=== PATIENT | female | born 1995 | race Caucasian/White ===

== ENCOUNTER 2016-09-20 17:38 | Emergency (ER) | payer BC ==
[~2016-09-20] VITALS: Ht 160 cm; Wt 65.3 kg
[2016-09-20 17:57] VITALS: TEMP 36.8; Ht 160 cm; Wt 65.3 kg
[2016-09-20] MEDS ORDERED: PRENTAB26 PO (19:01)
[2016-09-20 19:18] LABS: BASO % 0.3 %; BASO ABS # 0.03 K/uL (0-0.2); COMPLETE YES; EOS % 1.8 %; HEMATOCRIT 37.1 % (37-47); IG% 0.5 %; LYMPH % 23.2 %; LYMPH ABS # 2.14 K/uL (1.2-3.4); MEAN CELL VOLUME 84.7 fL (80-100); MEAN CORPUSCULAR HEMOGLOBIN 30.8 pg (25-34); MEAN CORPUSCULAR HGB CONC 36.4 g/dl (32-36); MEAN PLATELET VOLUME 8.7 fL (7.4-10.4); MONO % 6.7 %; NEUT % 67.5 %; PLATELET COUNT 248 K/uL (130-400); RED BLOOD COUNT 4.38 M/uL (4.2-5.4); WHITE BLOOD COUNT 9.23 K/uL (4.8-10.8)
[2016-09-20 19:34] LABS: BUN/CREATININE RATIO 12.5 (10-20); CALCIUM 9.1 mg/dl (8.5-10.1); CREATININE 0.65 mg/dl (0.60-1.20); POTASSIUM 3.4 mmol/L (3.5-5.1)
[2016-09-20 19:41] LABS: MANUAL MICROSCOPIC REQUIRED? NO; REVIEW REQ? NO; URINE APPEARANCE CLEAR (CLEAR); URINE BILIRUBIN NEG (NEG); URINE COLOR YELLOW; URINE NITRITE NEG (NEG); URINE PH 6.5 (4.5-7.5); UROBILINOGEN NEG (NEG); ZZUR CULT IF INDIC CLEAN CATCH NO
--- NOTE | 2016-09-20 19:58 | DIAGNOSTIC IMAGING REPORT ---
ULTRASOUND OF THE APPENDIX CLINICAL HISTORY: Right lower quadrant abdominal pain. . COMPARISON STUDY: Abdominal CT dated 12/12/2013. FINDINGS: Real-time, grayscale, and color flow sonography of the right lower quadrant was performed to assess for acute appendicitis. The appendix was not discretely visualized. No inflammatory changes or free fluid are seen in the right lower quadrant. No lymphadenopathy was seen. IMPRESSION: Nonvisualization of the appendix. Note that this does not exclude acute appendicitis. Electronically signed by: Darnell Zavala M.D. 09/20/2016 7:56 PM Dictated Date/Time: 09/20/2016 7:55 PM
[2016-09-20 20:53] VITALS: BP 103/60; PULSE 63; O2SAT 100
--- NOTE | 2016-09-20 22:21 | EMERGENCY ROOM VISIT NOTE ---
History Report prepared by Javidibkathleen: Shanice Garcia Under the Supervision of: Dr. Robert Alvarado D.O. First contact with patient: 18:40 Chief Complaint: ABDOMINAL PAIN Stated Complaint: 20 WKS ; STRONG ABDOMINAL PAIN Nursing Triage Summary: sharp pain in lower right abdomen. pain radiates down leg. 20 wks preg. denies vag bleeding or vag d/c History of Present Illness The patient is a 20 year old female who presents to the Emergency Room with complaints of sharp, intermittent right lower quadrant abdominal pain that began about an hour and 45 minutes ago. The pain began while she was at work. The pain comes and goes in waves. The pain radiates down her right leg. Currently, she has some dull abdominal pain. She has been eating and drinking well. The patient still has her gallbladder and appendix. She has had no other issues with this and she is currently 20 weeks . 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 She had a normal bowel movement this afternoon. Pt denies headache, change in vision, fevers, chest pain, shortness of breath, nausea, vomiting, diarrhea, pain with urination, vaginal discharge/bleeding, and melena. Source of History: patient Onset: 1 hour 45 minutes ago Position: abdomen (RLQ) Quality: sharp Timing: intermittent Associated Symptoms: No SOB, No chest pain, No diarrhea, No fevers, No headache, No nausea, No urinary symptoms, No vomiting Note: Other symptoms: pain radiating down right leg Review of Systems See HPI for pertinent positives & negatives. A total of 10 systems reviewed and were otherwise negative. Past Medical & Surgical Medical Problems: (1) Abdominal pain, acute, left lower quadrant Family History Diabetes mellitus FH: gallbladder disease FH: heart disease Hypertension Social History Smoking Status: Never Smoker Alcohol Use: occasionally Marital Status: Housing Status: lives with family Occupation Status: employed Current/Historical Medications Scheduled Multivit/Min/Iron/Fol Ac/Pren ( Vitamin), 1 TAB PO DAILY Allergies Uncoded Allergies: PENICILLIN (Allergy, Unknown, UNKNOWN, 09/20/16) SULFA (Allergy, Unknown, UNKNOWN, 09/20/16) Physical Exam Vital Signs Date Time Temp Pulse Resp B/P Pulse Ox O2 Delivery O2 Flow Rate FiO2 09/20/16 20:53 63 18 103/60 100 09/20/16 19:10 98 20 96/65 97 Room Air 09/20/16 17:57 36.8 75 18 103/66 100 Room Air Physical Exam GENERAL: Sitting up in bed, alert, well appearing, well nourished, no distress, non-toxic EYE EXAM: normal conjunctiva OROPHARYNX: no exudate, no erythema, lips, buccal mucosa, and tongue normal and mucous membranes are moist NECK: supple, no nuchal rigidity, no adenopathy, non-tender LUNGS: Clear to auscultation. Normal chest wall mechanics HEART: no murmurs, S1 normal and S2 normal ABDOMEN: Gravid uterus at the height of the umbilicus, slight right lower quadrant tenderness, normo-active bowel sounds, no masses, no rebound or guarding. BACK: Back is symmetrical on inspection and there is no deformity, no midline tenderness, no CVA tenderness. SKIN: no rashes and no bruising. Multiple tattoos present. UPPER EXTREMITIES: upper extremities are grossly normal. LOWER EXTREMITIES: No pitting edema. Flexion extension hip knees ankles EHL 5/5 , gross sensation intact NEURO EXAM: Normal sensorium, cranial nerves II-XII grossly intact, normal speech, no gross weakness of arms, no gross weakness of legs. Medical Decision & Procedures ER Provider Diagnostic Interpretation: Results have been interpreted by the radiologist and reviewed by me. ULTRASOUND OF THE APPENDIX CLINICAL HISTORY: Right lower quadrant abdominal pain. . COMPARISON STUDY: Abdominal CT dated 12/12/2013. FINDINGS: Real-time, grayscale, and color flow sonography of the right lower quadrant was performed to assess for acute appendicitis. The appendix was not discretely visualized. No inflammatory changes or free fluid are seen in the right lower quadrant. No lymphadenopathy was seen. IMPRESSION: Nonvisualization of the appendix. Note that this does not exclude acute appendicitis. Electronically signed by: Darnell Zavala M.D. 09/20/2016 7:56 PM Dictated Date/Time: 09/20/2016 7:55 PM Laboratory Results 09/20/16 19:00 Red Blood Count 4.38, Mean Corpuscular Volume 84.7, Mean Corpuscular Hemoglobin 30.8, Mean Corpuscular Hemoglobin Concent 36.4, Mean Platelet Volume 8.7, Neutrophils (%) (Auto) 67.5, Lymphocytes (%) (Auto) 23.2, Monocytes (%) (Auto) 6.7, Eosinophils (%) (Auto) 1.8, Basophils (%) (Auto) 0.3, Neutrophils # (Auto) 6.22, Lymphocytes # (Auto) 2.14, Monocytes # (Auto) 0.62, Eosinophils # (Auto) 0.17, Basophils # (Auto) 0.03 09/20/16 19:00 Test 09/20/16 18:55 09/20/16 19:00 Urine Color YELLOW Urine Appearance CLEAR (CLEAR) Urine pH 6.5 (4.5-7.5) Urine Specific [place] 1.010 (1.000-1.030) Urine Protein NEG (NEG) Urine Glucose (UA) NEG (NEG) Urine Ketones TRACE (NEG) Urine Occult Blood NEG (NEG) Urine Nitrite NEG (NEG) Urine Bilirubin NEG (NEG) Urine Urobilinogen NEG (NEG) Urine Leukocyte Esterase NEG (NEG) Urine WBC (Auto) 1-5 /hpf (0-5) Urine RBC (Auto) 0-4 /hpf (0-4) Urine Hyaline Casts (Auto) 0 /lpf (0-5) Urine Epithelial Cells (Auto) 10-20 /lpf (0-5) Urine Bacteria (Auto) NEG (NEG) Urine Test POS (NEG) White Blood Count 9.23 K/uL (4.8-10.8) Red Blood Count 4.38 M/uL (4.2-5.4) Hemoglobin 13.5 g/dL (12.0-16.0) Hematocrit 37.1 % (37-47) Mean Corpuscular Volume 84.7 fL (80-100) Mean Corpuscular Hemoglobin 30.8 pg (25-34) Mean Corpuscular Hemoglobin Concent 36.4 g/dl (32-36) Platelet Count 248 K/uL (130-400) Mean Platelet Volume 8.7 fL (7.4-10.4) Neutrophils (%) (Auto) 67.5 % Lymphocytes (%) (Auto) 23.2 % Monocytes (%) (Auto) 6.7 % Eosinophils (%) (Auto) 1.8 % Basophils (%) (Auto) 0.3 % Neutrophils # (Auto) 6.22 K/uL (1.4-6.5) Lymphocytes # (Auto) 2.14 K/uL (1.2-3.4) Monocytes # (Auto) 0.62 K/uL (0.11-0.59) Eosinophils # (Auto) 0.17 K/uL (0-0.5) Basophils # (Auto) 0.03 K/uL (0-0.2) RDW Standard Deviation 40.2 fL (36.4-46.3) RDW Coefficient of Variation 13.1 % (11.5-14.5) Immature Granulocyte % (Auto) 0.5 % Immature Granulocyte # (Auto) 0.05 K/uL (0.00-0.02) Anion Gap 13.0 mmol/L (3-11) Est Creatinine Clear Calc Drug Dose 123.3 ml/min Estimated GFR () 146.1 Estimated GFR (Non- 126.0 BUN/Creatinine Ratio 12.5 (10-20) Calcium Level 9.1 mg/dl (8.5-10.1) Total Bilirubin 0.4 mg/dl (0.2-1) Direct Bilirubin 0.1 mg/dl (0-0.2) Aspartate Amino Transf (AST/SGOT) 19 U/L (15-37) Alanine Aminotransferase (ALT/SGPT) 28 U/L (12-78) Alkaline Phosphatase 55 U/L (45-117) Total Protein 7.3 gm/dl (6.4-8.2) Albumin 3.9 gm/dl (3.4-5.0) Lipase 118 U/L (73-393) Laboratory results per my review. ED Course ED COURSE: Vital signs were reviewed and showed normal vitals. The patients medical record was reviewed The above diagnostic studies were performed and reviewed. ED treatments and interventions as stated above. 1845: The patient was evaluated in room B12. A complete history and physical examination was performed. heart rate was 154. 2023: Upon reevaluation, the patient is feeling much better and no longer has any pain.I discussed my findings with the patient and she understands and agrees with the treatment plan. Based on the patients age, coexisting illnesses, exam and lab findings the decision to treat as an outpatient was made. The patient remained stable while under my care. The patient appeared well at the time of discharge. Medical Decision Differential diagnoses includes but is not limited to gastritis, peptic ulcer disease, GERD, gallbladder disease, pancreatitis, small bowel obstruction, acute coronary syndrome, pericarditis, ischemic bowel, irritable bowel disease, irritable bowel syndrome, appendicitis, diverticulitis, malignancy, hernia, urinary tract infection, torsion, /ectopic , perforation, trauma, infectious. Patient is a 20-year-old female who is 20 weeks presents to the ER for right lower quadrant abdominal pain which started 45 minutes prior to arrival. She notes that it is sharp stabbing in nature and comes and goes and radiates down the anterior portion of her right thigh. No weakness or numbness in her groin or leg. She is completely neurologically intact. Abdomen does show a gravid uterus. She is normal tenderness in right lower quadrant. Vitals are stable. Afebrile. No significant leukocytosis or anemia. BMP along with LFTs , bilirubin and lipase was unremarkable. UA was negative. Ultrasound was unable to visualize the appendix. I performed a bedside ultrasound of the fetus which showed a heart rate of 172. Fetus was active moving extremities. On reevaluation she had absolutely no pain. She was updated bedside. I do favor this is likely round ligament pain rather than appendicitis. 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 Discussed with Pt concerning signs and symptoms to watch out for. Pt was instructed to follow up with their PCP and discussed with the patient their option to return to the ED at anytime for persistent or worsening symptoms. The appropriate anticipatory guidance and out-patient management, including indications for return to the emergency department, were explained at length to the patient and understood. Impression Primary Impression: RLQ abdominal pain Additional Impression: IUP (intrauterine ), incidental Scribe Attestation The scribe's documentation has been prepared under my direction and personally reviewed by me in its entirety. I confirm that the note above accurately reflects all work, treatment, procedures, and medical decision making performed by me. Departure Information Dispostion Home / Self-Care Referrals No Doctor, Assigned (PCP) Sakina Joyner D.O. Patient Instructions ED Abd Pain Cause Unkn Fem , ED Abd Pain Unkn Cause Fem, My [facility] Additional Instructions Please follow up with [employer]IVER with in the next 24 hours. Any worsening of your symptoms, please return to the ED immediately. This includes any fevers greater than 100.4, persistent nausea vomiting, worsening pain, or any other concerning signs or symptoms from your standpoint. Problem Qualifiers
== END 2016-09-20 20:57 | disposition home or self-care (01) ==
LOC: C.EDB 17:41
DX: O99.89 Other specified diseases and conditions complicating pregnancy, childbirth and the puerperium (principal); R10.9 Unspecified abdominal pain; Z3A.20 20 weeks gestation of pregnancy; Z88.0 Allergy status to penicillin; Z88.2 Allergy status to sulfonamides; Z83.3 Family history of diabetes mellitus; Z82.49 Family history of ischemic heart disease and other diseases of the circulatory system

== ENCOUNTER → 2016-11-16 | Outpatient (CLI) | payer BC ==
[~2016-11-16] MED LIST: PRENTAB26 PO
[2016-11-16 11:11] LABS: HEMATOCRIT 34.3 % (37-47)
[2016-11-16 11:42] LABS: GTGD 50 Grams
[2016-11-16 13:38] LABS: URINE APPEARANCE CLEAR (CLEAR); URINE BILIRUBIN NEG (NEG); URINE COLOR YELLOW; URINE NITRITE NEG (NEG); URINE SPECIFIC GRAVITY 1.025 (1.000-1.030); UROBILINOGEN NEG (NEG)
[2016-11-16 13:50] LABS: MANUAL MICROSCOPIC REQUIRED? NO; REVIEW REQ? NO
== END | disposition home or self-care (01) ==
LOC: C.LAB1850 09:09
PROVIDERS: ATTEND Obstetrics & Gynecology
DX: Z34.03 Encounter for supervision of normal first pregnancy, third trimester (principal)

== ENCOUNTER 2017-01-10 11:14 | Outpatient (CLI) | payer BC | END 2017-01-10 12:40 | disposition home or self-care (01) | LOC: C.OPB 11:14 → C.LD 11:14 → C.OPB 12:40 | PROVIDERS: ATTEND Obstetrics & Gynecology | DX: Z34.03 Encounter for supervision of normal first pregnancy, third trimester (principal); Z3A.36 36 weeks gestation of pregnancy ==

== ENCOUNTER → 2017-02-02 | Outpatient (CLI) | payer BC ==
[2017-02-02 13:37] LABS: URINE APPEARANCE CLEAR (CLEAR); URINE BILIRUBIN NEG (NEG); URINE COLOR YELLOW; URINE EPITHELIAL CELL AUTO 0-5 /lpf (0-5); URINE NITRITE NEG (NEG); URINE SPECIFIC GRAVITY 1.005 (1.000-1.030); UROBILINOGEN NEG (NEG)
[2017-02-02 13:39] LABS: MANUAL MICROSCOPIC REQUIRED? NO; REVIEW REQ? NO
== END ==
LOC: C.LAB1850 12:36
PROVIDERS: ATTEND Obstetrics & Gynecology
DX: Z34.03 Encounter for supervision of normal first pregnancy, third trimester (principal)

== ENCOUNTER 2017-02-13 00:03 | Outpatient (CLI) | payer BC ==
[~2017-02-13] VITALS: Ht 162.6 cm; Wt 76.8 kg
[2017-02-13 00:17] VITALS: Ht 162.6 cm; Wt 76.8 kg
== END 2017-02-13 00:52 | disposition home or self-care (01) ==
LOC: C.OPB 00:03 → C.LD 00:03 → C.OPB 00:52
PROVIDERS: ATTEND Obstetrics & Gynecology
DX: O62.9 Abnormality of forces of labor, unspecified (principal); O48.0 Post-term pregnancy; Z3A.41 41 weeks gestation of pregnancy

== ENCOUNTER 2017-02-13 18:58 | Outpatient (CLI) | payer BC ==
[~2017-02-13] VITALS: Ht 162.6 cm; Wt 76.8 kg
[2017-02-13 19:30] VITALS: Ht 162.6 cm; Wt 76.8 kg
== END 2017-02-13 20:30 | disposition home or self-care (01) ==
LOC: C.LD 18:58 → C.OPB 18:58
PROVIDERS: ATTEND Obstetrics & Gynecology
DX: O48.0 Post-term pregnancy (principal); Z3A.41 41 weeks gestation of pregnancy

== ENCOUNTER 2017-02-14 07:40 | Inpatient (IN) | payer BC ==
[~2017-02-14] VITALS: Ht 162.6 cm; Wt 76.7 kg
[2017-02-14] MEDS ORDERED: LACTATED RINGER'S 1000ML 1,000 ML IV PRN (07:57)
[2017-02-14] MEDS ORDERED: LACTATED RINGER'S 1000ML 500 ML IV PRN ×2 (07:58→12:00)
[2017-02-14] MEDS ORDERED: OXYTOCIN 30 UNITS/500ML NSS IV PRN ×2 (08:00→18:00)
[2017-02-14] MEDS: LACTATED RINGER'S 1000ML 1,000 ML IV SCH ×2 (08:14→11:36)
[2017-02-14 08:19] LABS: HEMATOCRIT 35.5 % (37-47); MEAN CORPUSCULAR HGB CONC 36.1 g/dl (32-36); MEAN PLATELET VOLUME 8.9 fL (7.4-10.4); PLATELET COUNT 162 K/uL (130-400); RED BLOOD COUNT 4.13 M/uL (4.2-5.4); WHITE BLOOD COUNT 10.67 K/uL (4.8-10.8)
--- NOTE | 2017-02-14 08:51 | Medical Student: [facility] ---
Med Student History & Physical Date of Service Feb 14, 2017. Chief Complaint Induction History of Present Illness Source: patient Monika Chapin is a 21-year-old with an EDC of 02/05/2017 who presents to labor and delivery for induction of labor. Alexander bulb catheter was placed on Tuesday, and the patient is preparing for induction today. Bulb fell out this morning at 0500, and she is currently receiving Pitocin. Monika reports having contractions every 5-7 minutes with movements every couple minutes. She denies leakage of fluid or bleeding. She also reports her mood as "good" with " a lot of emotions" but denies feelings of anxiety or depression currently. She is comfortable and has no other complaints at this time. Monika had an episode on January 10 where she presented to L&D for what she thought was rupture of membranes. She was found to have no cervical dilation or leakage of fluid at that time, and was sent home. She also had an episode on Sep 20 where she presented to the ER for right lower quadrant pain. She says that her baby "was lying on a nerve" which resolved and has not bothered her since then. Other than these two events, her has had no other complications. She denied genetic screening. Her blood type is O+, and her Hct was 34.3 on Nov 16. Her most recent 1 hr glucose challenge revealed a low glucose level of 67. Gonorrhea, chlamydia, HIV, GBS, RPR, and Hep B were all negative. She is Rubella immune. Anatomy ultrasound normal. OB History See history in HPI. No other obstetric history. 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 No episodes or complaints since then. Denies history of STIs. Denies history of abnormal pap smears. Past Medical History Remote history of anxiety and depression. Was taking Celexa from [id number] and [id number], but stopped it when she decided to try to get . She has also seen a counselor in the past, she says this "gave her good coping strategies." Her PCP is following these symptoms. Past Surgical History None Family History Mother - hypertension, hypothyroidism Father - hypertension, diverticulitis Sister - "glucose and fructose intolerance" Grandmother - Parkinson's Disease Social History Smoking Status: Never Smoker Smokeless Tobacco Use: No Alcohol Use: none (during , 1-2 times per week prepartum) Marital Status: Housing status: lives with significant other Occupational Status: employed (at [employer]) Allergies Coded Allergies: Sulfamethoxazole w/Trimethoprim (Verified Allergy, Mild, HIVES, 02/14/17) Penicillins (Verified Allergy, Unknown, HIVES, 02/14/17) Uncoded Allergies: sulfa drugs (Allergy, Mild, HIVES, 02/13/17) Home Medications Multivit/Min/Iron/Fol Ac/Pren ( Vitamin), 1 TAB PO DAILY Review of Systems Constitutional: No fever, No chills Respiratory: No shortness of breath Cardiovascular: No chest pain, No palpitations Abdomen: No pain, No nausea, No vomiting Psychiatric: No depression symptoms, No anxiety Physical Exam General Appearance: WD/WN, no apparent distress Eyes: PERRL Neck: no adenopathy, thyroid normal Respiratory/Chest: lungs clear, normal breath sounds Cardiovascular: regular rate, rhythm, no edema, no gallop, no murmur, normal peripheral pulses Abdomen / GI: normal bowel sounds, non tender, no organomegaly Fundal Height: 1 fingerbreadth below the xiphoid process Extremities: normal inspection, no calf tenderness, no pedal edema Neurologic/Psych: alert, normal mood/affect Monitoring External Monitor: Baseline 150 Moderate variability Accelerations present No decelerations Tocodynamometer: Harish every 2-3 minutes Laboratory Results 02/14/17 08:06 Test 02/14/17 08:06 Red Blood Count 4.13 M/uL (4.2-5.4) Mean Corpuscular Volume 86.0 fL (80-100) Mean Corpuscular Hemoglobin 31.0 pg (25-34) Mean Corpuscular Hemoglobin Concent 36.1 g/dl (32-36) RDW Standard Deviation 39.6 fL (36.4-46.3) RDW Coefficient of Variation 12.6 % (11.5-14.5) Mean Platelet Volume 8.9 fL (7.4-10.4) Assessment and Plan Monika Chapin is a 21-year-old with an EDC of 02/05/2017 who presents to labor and delivery for induction of labor. Pitocin started. Patient to receive epidural and AROM. Anticipate normal spontaneous vaginal delivery.
[2017-02-14 08:55] VITALS: Ht 162.6 cm; Wt 76.7 kg
[2017-02-14] MEDS ORDERED: EpHEDrine SULFATE INJ 50 MG/ML AMP ONE (11:11)
[2017-02-14] MEDS ORDERED: BUPIVACAINE 0.25% 30 ML VIAL ONE (11:11)
[2017-02-14] MEDS ORDERED: FENTANYL 2MCG/ML ROPIV 1.25MG/ML 100ML BAG EPI ONE (11:12)
[2017-02-14] MEDS ORDERED: FENTANYL CITRATE INJ 50 MCG/1 ML 2 ML VIAL ONE (11:12)
[2017-02-14] MEDS ORDERED: EpHEDrine SULFATE INJ 50 MG/ML AMP IV PRN (12:00)
[2017-02-14] MEDS ORDERED: ONDANSETRON INJ 2 MG/ML 2 ML VIAL IV PRN (12:00)
[2017-02-14] MEDS ORDERED: DiphenhydrAMINE HCL 50 MG/ML VIAL IV PRN (12:00)
[2017-02-14] MEDS ORDERED: NALOXONE HCL INJ 1 MG in SODIUM CHLORIDE 0.9% 1000ML 1,000 ML IV PRN (12:00)
[2017-02-14] MEDS ORDERED: FENTANYL 2MCG/ML ROPIV 1.25MG/ML 100ML BAG EPI PRN (12:00)
[2017-02-14] MEDS ORDERED: NALBUPHINE HCL INJ 10 MG/ML AMP IV PRN (12:00)
[2017-02-14] MEDS ORDERED: NALOXONE HCL INJ 0.4 MG/1 ML VIAL/CARP IV PRN (12:00)
[2017-02-14] MEDS ORDERED: METHYLERGONOVINE MALEATE 0.2 MG/ML AMP ONE (17:41)
--- NOTE | 2017-02-14 17:57 | Medical Student: [facility] ---
Medical Student Delivery Note Monika Chapin is a 21-year-old G1 now P1001 with an EDC of 02/05/2017 who presented to labor and delivery for induction of labor. Labor was augmented with Alexander bulb catheter on Tuesday which fell out today as well as Pitocin. When she was complete and 0 station, she pushed for approximately 40 minutes. A viable female was delivered in the right occiput posterior position at 1729 weighing 7 lbs 12 oz. There was no nuchal cord. The baby was placed on the mother's abdomen where her nose and mouth were bulb suctioned. The cord was doubly clamped and transected by the father. Cord blood and cord segment were collected. A second degree perineal laceration was apparent, and it was repaired with 4-0 and 3-0 Vicryl. The placenta with a three vessel cord was delivered shortly after with jori downward traction and uterine massage. Hemostasis was achieved with continued uterine massage, continued Pitocin drip, and IM Methergine in her right thigh. EBL was 350 cc. scores were 8 and 9. The mother and are currently doing well and recovering.
[2017-02-14] MEDS ORDERED: ACETAMINOPHEN 325 MG TAB PO PRN (18:00)
[2017-02-14] MEDS ORDERED: DIPHTHERIA/TETANUS/PERTUSSIS 0.5 ML SYR/VIAL IM. ONE (18:00)
[2017-02-14] MEDS ORDERED: METHYLERGONOVINE MALEATE 0.2 MG/ML AMP IM ONE (18:00)
[2017-02-14] MEDS ORDERED: OXYCODONE/ACETAMINOPHEN 5-325 TAB PO PRN (18:00)
[2017-02-14] MEDS ORDERED: LANOLIN OINT EXT PRN ×2 (18:00)
[2017-02-14] MEDS ORDERED: SUPERCREAM 0.870 % 15GM JAR EXT PRN (18:00)
[2017-02-14] MEDS ORDERED: BENZOCAINE 20% AER SPR 82.5 GM CAN EXT PRN (18:00)
[2017-02-14] MEDS ORDERED: HYDROCORTISONE ACETATE 25 MG SUPP PR PRN (18:00)
[2017-02-14] MEDS: IBUPROFEN 600 MG TAB PO PRN (21:19)
--- NOTE | 2017-02-14 21:31 | DELIVERY SUMMARY ---
DATE OF OPERATION: 02/14/2017 PREOPERATIVE DIAGNOSES: 1. Intrauterine at 41 and 2/7th weeks. 2. Post-date . POSTOPERATIVE DIAGNOSES: Same. PROCEDURE: 1. Alexander bulb for cervical ripening. 2. Pitocin augmentation. 3. Epidural anesthesia. 4. Amniotomy. 5. Normal spontaneous vaginal delivery. 6. Second degree perineal laceration with repair. SURGEON: Dr. Zimmerman. ANESTHESIA: Epidural. ESTIMATED BLOOD LOSS: 350 mL. PROCEDURE: The patient presented for post-date induction this morning. She had a Alexander catheter bulb placed in to her cervix last night. It fell out at 5 a.m this morning. On admission, she was 4, 75%, and -2. Pitocin augmentation was started. She underwent an epidural anesthesia. Then she underwent amniotomy for clear fluid at 6 cms dilated. She then progressed with Pitocin augmentation no greater than 15 milliunits to complete, complete +2 station, and pushed to deliver a viable female infant which rotated to ROP presentation. There was no nuchal cord. The nose and mouth were bulb suctioned. The rest of the infant was then delivered without difficulty. The nose and mouth were again bulb suctioned. There was immediate cry. The was placed on the maternal abdomen for drying and attention. At one minute, the cord was clamped and cut. The cord blood and segment were obtained. Placenta was delivered spontaneously intact with a 3-vessel cord. The cervix, sulci and rectum were examined and found to be intact. Second degree perineal laceration was repaired with 3-0 and 4-0 Vicryl in normal standard fashion. Hemostasis obtained with dilute Pitocin, fundal massage and IM Methergine. Estimated blood loss was 350 mL. Apgars were 8 and 9. Weight pending. Mother and baby doing well at the end of the delivery. I attest to the content of the Intraoperative Record and any orders documented therein. Any exceptions are noted below. MTDD
--- NOTE | 2017-02-14 21:57 | Anesthesia Procedure Note ---
Anesthesia Epidural Removal Nt Date & Time Feb 14, 2017 at 21:57 Vital Signs Pain Intensity: 4.0 Notes Mental Status: alert / awake / arousable, participated in evaluation Nausea / Vomiting: adequately controlled Pain: adequately controlled Airway Patency, RR, SpO2: stable & adequate BP & HR: stable & adequate Hydration State: stable & adequate Neuraxial Anesthesia: was administered Anesthetic Complications: no major complications apparent, pt satisfied with anesthetic care Epidural: removed without complications, with tip intact
[2017-02-14] MEDS: DOCUSATE SODIUM 100 MG CAP PO SCH (22:34)
[2017-02-14 23:15] VITALS: BP 102/53; PULSE 70; TEMP 36.6; O2SAT 98
[2017-02-15] VITALS (7 sets, daily range): BP systolic 91–109; BP diastolic 54–73; PULSE 70–87; TEMP 36.3–36.7; O2SAT 95–100
--- NOTE | 2017-02-15 06:33 | Medical Student: [facility] ---
Med Student [employer] Progress Nt Date of Service Feb 15, 2017. Subjective conversation w/ patient, physical exam Ambulation: ambulating normally Voiding: no voiding problems Passing Gas: Yes Lochia: Small Feeding Type: Breast Feeding Notes: Monika Chapin is a 21-year-old G1 now P1001 day 1 for normal spontaneous vaginal delivery. She has some pain where her stitches are for which she is taking Motrin, and this is helping. Her mood is "good." She has no other complaints. Review of Systems Constitutional: No fever, No chills Respiratory: No shortness of breath Cardiac: No chest pain Abdomen: No nausea, No vomiting Objective Vital Signs Date Time Temp Pulse Resp B/P (MAP) Pulse Ox O2 Delivery O2 Flow Rate FiO2 02/15/17 03:10 36.7 70 16 103/60 (74) 99 Room Air 02/14/17 23:15 98 Room Air 02/14/17 23:15 36.6 70 18 102/53 (69) 98 Room Air 02/14/17 21:45 Room Air Physical Exam General Appearance: WELL-APPEARING Respiratory/Chest: lungs clear, normal breath sounds Cardiovascular: regular rate, rhythm, no edema, no gallop Abdomen: + tenderness Fundus: Relation to Umbilicus (could not palpate) Extremities: no pedal edema, no calf tenderness Laboratory Results Last 24 Hours Test 02/14/17 08:06 02/15/17 04:44 White Blood Count 10.67 K/uL Red Blood Count 4.13 M/uL Hemoglobin 12.8 g/dL Hematocrit 35.5 % Mean Corpuscular Volume 86.0 fL Mean Corpuscular Hemoglobin 31.0 pg Mean Corpuscular Hemoglobin Concent 36.1 g/dl RDW Standard Deviation 39.6 fL RDW Coefficient of Variation 12.6 % Platelet Count 162 K/uL Mean Platelet Volume 8.9 fL Assessment and Plan Post- Day Number: 1 Continue Routine Care: Monika Chapin is a 21-year-old G1 now P1001 day 1 for normal spontaneous vaginal delivery. - Continue routine care. - Due to history of depression and anxiety, monitor mood and educate patient about signs of depression.
--- NOTE | 2017-02-15 07:25 | Progress Note ---
Subjective Feb 15, 2017. Subjective conversation w/ patient, physical exam, lab review Ambulation: ambulating normally Voiding: no voiding problems Passing Gas: Yes Diet Tolerance: Regular Diet Lochia: Small Pain: controlled with oral pain meds Objective Vital Signs Date Time Temp Pulse Resp B/P (MAP) Pulse Ox O2 Delivery O2 Flow Rate FiO2 02/15/17 03:10 36.7 70 16 103/60 (74) 99 Room Air 02/14/17 23:15 98 Room Air 02/14/17 23:15 36.6 70 18 102/53 (69) 98 Room Air 02/14/17 21:45 Room Air Physical Exam General Appearance: WELL-APPEARING, WD/WN, NO APPARENT DISTRESS Abdomen: non tender, soft Fundus: Firm, Non-Tender, Relation to Umbilicus (below u , difficult to palpate ) Extremities: non-tender, normal inspection, no pedal edema Laboratory Results Last 24 Hours Test 02/14/17 08:06 02/15/17 07:17 White Blood Count 10.67 K/uL Red Blood Count 4.13 M/uL Hemoglobin 12.8 g/dL Hematocrit 35.5 % Mean Corpuscular Volume 86.0 fL Mean Corpuscular Hemoglobin 31.0 pg Mean Corpuscular Hemoglobin Concent 36.1 g/dl RDW Standard Deviation 39.6 fL RDW Coefficient of Variation 12.6 % Platelet Count 162 K/uL Mean Platelet Volume 8.9 fL Assessment and Plan Problem List Medical Problems: (1) Abdominal pain during Status: Acute Post- Day#: 1 Continue Routine Care: Doing well. Routine care.
[2017-02-15 08:26] LABS: HEMATOCRIT 32.6 % (37-47)
[2017-02-15] MEDS: PRENATAL VITAMIN TAB PO SCH (08:33)
[2017-02-15] MEDS: DOCUSATE SODIUM 100 MG CAP PO SCH ×2 (08:33→20:09)
[2017-02-15] MEDS: IBUPROFEN 600 MG TAB PO PRN ×3 (09:46→20:09)
[2017-02-16] MEDS: IBUPROFEN 600 MG TAB PO PRN ×2 (00:39→08:55)
--- NOTE | 2017-02-16 01:30 | Discharge Instructions ---
Discharge Instructions Date of Service Feb 16, 2017. Admission Reason for Admission: Induction Discharge Discharge Diagnosis / Problem: recovery after normal delivery Discharge Goals Goal(s): Routine recovery after delivery Medications Continue Dispensed Medications: supercream, dermaplast, tucks, lansinoh Activity Recommendations Activity Limitations: per Instructions/Follow-up section . Instructions / Follow-Up Instructions / Follow-Up ACTIVITY RECOMMENDATIONS: * Gradual return to full activity over the next 2-3 weeks. * No lifting - nothing heavier than baby over the next 2-3 weeks. * Do not engage in vigorous exercise, sexual activity or sports until cleared by your physician. * Do not drive or operate any motorized equipment until cleared by your physician. * You may shower/bathe daily. MEDICATIONS: For discomfort or pain, you may use Acetaminophen (Tylenol), Ibuprofen (Advil), or Naproxen (Aleve) following the package directions. For constipation you may use Colace following the package directions. BREAST CARE: If you are not breast feeding: * Wear a supportive bra 24 hours a day for one to two weeks. * Avoid stimulating your breasts and nipples as much as possible during the first few weeks after delivery. * When taking a shower, have the warm water hit your back, not breasts. * When your breasts feel full, apply ice packs. Usually three to four times a day helps ease the discomfort. * Take a mild pain medication (Tylenol / Motrin) when you are uncomfortable. If breast feeding: * Use breast milk to lubricate nipples. Lansinoh cream may be used for sore nipples. You do not need to remove cream prior to breast feeding. If using a different brand of cream, check the label for directions regarding removal of cream prior to nursing. * Wear a supportive bra. * If having problems with breasts or breast feeding, call a nissan sales consultant or your health care provider. EPISIOTOMY CARE: After delivery, if you have an episiotomy (stitches), the following steps will ease discomfort and aid healing. * For the first 24 hours after delivery, place ice packs next to your episiotomy to help reduce swelling. * After the first 24 hour-period, sitz baths, either portable or in the tub, are suggested. A shower with a shower arm sprayed over the episiotomy may be comforting. * Lindsey care should be done after each voiding and bowel movement. Squirt warm water from a plastic bottle over the perineum (region of the body between the anus and urinary opening) and pat dry. * Use Dermoplast to ease discomfort. Shake container. [place] directly over the episiotomy. Place a Tucks on a clean sanitary pad next to your episiotomy. SPECIAL CARE INSTRUCTIONS: When you are discharged from the hospital, it is important for you to follow the instructions listed below: * During the first week at home, you should be able to care for yourself and your baby. In addition, the usual light household activities are encouraged. * Limit your activities to the way you feel. Do not try to clean the house or move furniture. Be sensible. * If you actively engage in sports and have done so up until the time of your delivery, you may resume these activities as soon as you feel able. This may take up to one month or even longer. Use good judgment. * Continue to take your vitamins for at least six weeks after the of your baby. * Your diet need not be limited unless you were on a special diet before your delivery. Breast-feeding mothers need around 2500 calories per day and at least 64-80 ounces of fluid per day (8 to 10 glasses). * You should eat foods from the four major food groups. Crash diets or fad diets are to be avoided. Eating lean meats, fresh fruits and vegetables, low-fat dairy products, high fiber foods and a regular exercise program, will help you get back to your pre- weight without putting your health at risk. * Constipation is sometimes a problem after delivery. Take a mild laxative as needed. If breast feeding, Milk of Magnesia is acceptable to use. You may use a suppository or Fleets enema if no episiotomy. * A daily shower or tub bath is suggested. Be sure to thoroughly and gently dry the perineum. * A bloody vaginal discharge will usually continue until around four weeks post . A small amount of bleeding may continue for as long as six weeks. Vaginal discharge changes from the bright red bleeding after delivery to pink then brownish and finally yellowish-pink before becoming white and disappearing. * Bleeding may increase with activity. Your first period may come in 4-8 weeks. If you are breast feeding, your period may be delayed even longer. * [place] (sex) can begin whenever both you and your partner feel comfortable and do not have any form of genital infection. It is recommended that you wait at least six weeks for internal and external healing to occur. If you have questions, please talk to your health care practitioner. A condom should be used to prevent infection and . * Foreplay, gentle intercourse and lubrication is very important the first several times to prevent pain. A water-based lubricant such as K-Y jelly or Astroglide may be used. * If you have RH negative blood and your baby is RH positive, you will receive RHOGAM by injection prior to discharge. The nurse will give you a card to keep with you that has the date and place that you received RHOGAM after delivery. * During your care, you had a Rubella screen done to check for the presence of rubella antibodies in your blood. If your test was negative, you will receive a Rubella vaccine prior to discharge. This vaccine may cause a fever, soreness at the injection site and flu-like symptoms. If these symptoms persist, notify your health care practitioner. is not advised for one month after a Rubella vaccine. * Verbalizes understanding of car seat law as reviewed with patient nursing. * Car Seat hand-out given and reviewed with patient by nursing. * Shaken baby information reviewed with patient by nursing. Call you doctor if: * Heavy bleeding (saturating several pads an hour) or passing clots the size of your fist. * A fever >101 degrees F (38.3 degrees C) on two occasions four hours apart and /or chills. * Unusual pain in the pelvic or vaginal areas. * "Baby Blues" lasting longer than two weeks. If you have any questions or concerns, call your health care practitioner at . FOLLOW UP VISIT: * Please call the office at to schedule a 6 week examination. It is important you keep this appointment. It is important for you to make arrangements for either yearly or twice yearly check-ups thereafter. Current Hospital Diet Patient's current hospital diet: Regular OB Diet Discharge Diet Recommended Diet: Regular OB Diet Pending Studies Studies pending at discharge: no Medical Emergencies . Who to Call and When: Medical Emergencies: If at any time you feel your situation is an emergency, please call 911 immediately. . Non-Emergent Contact Non-Emergency issues call your: Hydraulic Mechanic . . "Provider Documentation" section prepared by Krista Leal. . VTE Core Measure Inpt VTE Proph given/why not?: Treatment not indicated
--- NOTE | 2017-02-16 06:46 | Medical Student: [facility] ---
Med Student [employer]OR [employer] Progress Nt Date of Service Feb 16, 2017. Subjective Notes: Monika Chapin is a 21-year-old G1 now P1001 day 2 for normal spontaneous vaginal delivery. She says she is doing "good" at this time. She says that she has leg cramps if she doesn't walk for a while, but denies chest pain and shortness of breath. consultation has been going well and baby is latching without the nipple shield now. Monika has a history of depression and anxiety but says she is doing well today. She also wants to discuss how much bleeding is normal in the period. Review of Systems Constitutional: No fever, No chills Respiratory: No shortness of breath Cardiac: No chest pain, No edema Abdomen: No nausea, No vomiting Objective Vital Signs Date Time Temp Pulse Resp B/P (MAP) Pulse Ox O2 Delivery O2 Flow Rate FiO2 02/15/17 22:50 36.3 70 20 95/56 (69) 97 Room Air 02/15/17 22:50 Room Air 02/15/17 20:05 36.6 85 20 91/54 (66) 95 Room Air 02/15/17 16:00 36.6 87 18 109/73 (85) Room Air 02/15/17 16:00 Room Air 02/15/17 12:32 36.5 85 20 102/64 (77) 100 Room Air 02/15/17 08:35 36.4 81 19 104/67 (79) 97 Room Air 02/15/17 08:10 97 Room Air Physical Exam General Appearance: WELL-APPEARING Respiratory/Chest: lungs clear Cardiovascular: regular rate, rhythm, no edema, + gallop/S3 Abdomen: normal bowel sounds Fundus: Firm, Relation to Umbilicus (at level of umbilicus) Extremities: no pedal edema, no calf tenderness Laboratory Results Last 24 Hours Test 02/15/17 07:17 Hemoglobin 11.5 g/dL Hematocrit 32.6 % Assessment and Plan Post- Day Number: 2 Continue Routine Care: Monika Chapin is a 21-year-old G1 now P1001 day 2 for normal spontaneous vaginal delivery. - Continue routine care. - Discuss signs of and resources for depression. - Discuss signs of excessive bleeding in the period.
--- NOTE | 2017-02-16 07:37 | Progress Note ---
Subjective Feb 16, 2017. Subjective conversation w/ patient, physical exam Ambulation: ambulating normally Voiding: no voiding problems Passing Gas: Yes Diet Tolerance: Regular Diet Lochia: Moderate Feeding Type: Breast Feeding Review of Systems Constitutional: No fever, No chills, No sweats, No weight loss, No weakness, No fatigue, No problem reported Breast: No see HPI, No breast lump, No change in shape, No nipple discharge, No breast pain, No problem reported Female : No see HPI, No dysuria, No urinary frequency, No hematuria, No incontinence, No abnormal vaginal bleeding, No vaginal discharge, No problem reported Objective Vital Signs Date Time Temp Pulse Resp B/P (MAP) Pulse Ox O2 Delivery O2 Flow Rate FiO2 02/15/17 22:50 36.3 70 20 95/56 (69) 97 Room Air 02/15/17 22:50 Room Air 02/15/17 20:05 36.6 85 20 91/54 (66) 95 Room Air 02/15/17 16:00 36.6 87 18 109/73 (85) Room Air 02/15/17 16:00 Room Air 02/15/17 12:32 36.5 85 20 102/64 (77) 100 Room Air 02/15/17 08:35 36.4 81 19 104/67 (79) 97 Room Air 02/15/17 08:10 97 Room Air Physical Exam General Appearance: WELL-APPEARING, NO APPARENT DISTRESS Abdomen: non tender, soft Fundus: Firm, Non-Tender, Relation to Umbilicus (2 below U) Extremities: no calf tenderness Assessment and Plan Problem List Medical Problems: (1) Abdominal pain during Status: Acute Post- Day#: 2 Continue Routine Care: stable course. discharge to home follow up in 6 weeks.
[2017-02-16] MEDS: PRENATAL VITAMIN TAB PO SCH (08:54)
[2017-02-16] MEDS: DOCUSATE SODIUM 100 MG CAP PO SCH (08:54)
[2017-02-16 08:55] VITALS: BP 106/62; PULSE 87; TEMP 36.8; O2SAT 98
[2017-02-16 14:05] VITALS: BP_DIAS 62; PULSE 87; TEMP 36.8
== END 2017-02-16 14:10 | disposition home or self-care (01) | DRG 775 ==
LOC: C.LD 07:40 → C.OBG 21:29
PROVIDERS: ADMIT Obstetrics & Gynecology; ATTEND Obstetrics & Gynecology
PROC: 10E0XZZ Delivery of Products of Conception, External Approach (ICD-10-PCS; principal; 2017-02-14)
PROC: 3E033VJ Introduction of Other Hormone into Peripheral Vein, Percutaneous Approach (ICD-10-PCS; principal; 2017-02-14)
PROC: 0KQM0ZZ Repair Perineum Muscle, Open Approach (ICD-10-PCS; principal; 2017-02-14)
DX: O48.0 Post-term pregnancy (principal); O70.1 Second degree perineal laceration during delivery; Z3A.41 41 weeks gestation of pregnancy; Z37.0 Single live birth

== ENCOUNTER 2019-03-09 14:08 | Inpatient (IN) ==
[2019-03-09] MEDS ORDERED: OXYTOCIN 30 UNITS/500 ML BAG IV PRN ×2 (14:59→19:33)
[2019-03-09] MEDS: LACTATED RINGER'S 1,000 ML IV PRN ×2 (15:15→16:46)
[2019-03-09 15:24] LABS: Hematocrit (blood only) 34.5 % (37-47); Hemoglobin 12.1 g/dL (12.0-16.0); Mean Corpuscular Volume 80.8 fL (80-100); Mean Platelet Volume 9.1 fL (7.4-10.4); Platelet Count 162 K/uL (130-400); RDW Coefficient of Variation 13.1 % (11.5-14.5); RDW Standard Deviation 38.6 fL (36.4-46.3); Red Blood Count 4.27 M/uL (4.2-5.4); White Blood Count 6.12 K/uL (4.8-10.8)
[2019-03-09 15:33] LABS: Mean Corpuscular Hgb Conc 35.1 g/dL (32-36)
[2019-03-09] MEDS ORDERED: BUPIVACAINE 0.25% 30 ML VIAL ONE (15:46)
[2019-03-09] MEDS ORDERED: ePHEDrine sulfate 50 MG/ML AMP ONE (15:47)
[2019-03-09] MEDS ORDERED: fentaNYL 2MCG/ML ROPIV 1.25MG/ML 100 ML BAG EPI ONE (15:47)
[2019-03-09] MEDS ORDERED: fentaNYL citrate 100 MCG/2 ML VIAL ONE (15:47)
[2019-03-09] MEDS ORDERED: NALOXONE HCL 0.4 MG/1 ML VIAL/CARP IV PRN (15:49)
[2019-03-09] MEDS ORDERED: DiphenhydrAMINE HCL 50 MG/ML VIAL IV PRN (15:49)
[2019-03-09] MEDS ORDERED: NALOXONE HCL 1 MG in SODIUM CHLORIDE 0.9% 1000ML 1,000 ML IV PRN (15:49)
[2019-03-09] MEDS ORDERED: ONDANSETRON INJ 2 MG/ML 2 ML VIAL IV PRN (15:49)
[2019-03-09] MEDS ORDERED: fentaNYL 2MCG/ML ROPIV 1.25MG/ML 100 ML BAG EPI PRN (15:49)
[2019-03-09] MEDS ORDERED: NALBUPHINE HCL INJ 10 MG/ML AMP IV PRN (15:49)
[2019-03-09] MEDS ORDERED: ePHEDrine sulfate 50 MG/ML AMP IV PRN (15:49)
--- NOTE | 2019-03-09 15:53 | Anesthesiology Consultation ---
Date of Service March 09, 2019 SpO2 100 Assessment & Plan Chart Review Chart Review: Patient NOT seen in Pre Admission Testing and Acceptable Risk for Labor Epidural Consults Requested none ASA ASA2 Proposed Anesthesia Anesthesia Type: Labor Epidural and CSE Risk / Benefits Reviewed With: PT / POA / Parent / Guardian, Accepts Plan and Informed Consent Obtained History Height/Weight Height: 5 ft 4 in Weight: 72.121 kg Allergies Allergy/AdvReac Type Severity Reaction Status Date / Time Bactrim Allergy Mild HIVES Verified 02/14/17 08:52 Penicillins Allergy Mild HIVES Verified 03/09/19 14:36 sulfamethoxazole Allergy Mild HIVES Verified 03/09/19 14:37 trimethoprim Allergy Mild HIVES Verified 03/09/19 14:37 Sulfa (Sulfonamide Allergy Hives Verified 03/09/19 14:36 Antibiotics) Medications Home Medications Medication Instructions Recorded Confirmed Last Taken Multivit/Min/Iron/Fol Ac/Pren 1 tab PO DAILY #0 tab 09/20/16 03/09/19 03/08/19 08:00 ( Vitamin) Active Medications Generic Name Dose Route Start Last Admin Trade Name Freq PRN Reason Stop Dose Admin Lactated Ringer's 1,000 mls @ 125 mls/hr 03/09/19 14:59 03/09/19 15:15 Lr IV 03/11/19 14:58 125 mls/hr .Q8H PRN Administration L&D Protocol Protocol NPO Date Last Intake of Fluids: 03/09/19 Time Last Intake of Fluids: 07:00 Date Last Intake of Solids: 03/08/19 Time Last Intake of Solids: 20:00 Past Medical History Medical History Anxiety and depression no meds currently Exercise / Class Metabolic Activity II 4-5 Yardwork/Stairs/Walk up hill Past Anesthesia History No Hx of Anesthesia Complications and No Family Hx of Anesthesia Complications History of PONV No Hx of PONV Social History Smoking Status: Never smoker Hx Alcohol Use: No Hx Substance Use: No Review of Systems no chest pain or sob Physical Exam Vital Signs Last Vital Signs Temp 36.8 C 03/09/19 14:21 Pulse 80 03/09/19 14:17 Resp 20 03/09/19 14:21 BP 115/79 03/09/19 14:17 ENMT Mouth: no TMJ abnormality Thyromental Distance: > or= 3.5 Finger Breadths Mallampati Class: II Neck normal visual inspection Respiratory normal respiratory effort Auscultation: lungs clear to auscultation bilaterally Cardiovascular Rate/Rhythm: regular rate and regular rhythm Musculoskeletal Spine: normal cervical ROM Neurologic moves all extremities Psychiatric Orientation: alert and oriented x 3 Testing Laboratory Results 03/09/19 15:11
--- NOTE | 2019-03-09 16:02 | History & Physical Report ---
Date of Service March 09, 2019 Patient is a 23 yo white female who presents at 39+ weeks with regular ctns since 1000 this morning. no bloody show or SPROM. ctns are now every 3 minutes. GBS(-). is uncomplicated. Assessment & Plan (1) Normal labor: IUP at term in active labor see orders for further instructions. requesting epidural analgesia anticipate vaginal History of Present Illness Primary Care Provider: NO PCP Allergies Allergy/AdvReac Type Severity Reaction Status Date / Time Bactrim Allergy Mild HIVES Verified 02/14/17 08:52 Penicillins Allergy Mild HIVES Verified 03/09/19 14:36 sulfamethoxazole Allergy Mild HIVES Verified 03/09/19 14:37 trimethoprim Allergy Mild HIVES Verified 03/09/19 14:37 Sulfa (Sulfonamide Allergy Hives Verified 03/09/19 14:36 Antibiotics) Home Medications Home Medications Medication Instructions Recorded Confirmed Type Multivit/Min/Iron/Fol Ac/Pren 1 tab PO DAILY #0 tab 09/20/16 03/09/19 History ( Vitamin) Patient History Medical History Anxiety and depression no meds currently Social History Preferred Language: Finnish Communication Ability: Effective Furnace Clerk Required: No Beliefs That Will Affect Care: None marital status: Current Living Situation: Family Current Living Situation Comment: spouse and daughter 2yo Feels Safe at Home: Yes Safety Concerns: Feels Safe At This Time Smoking Status: Never smoker Hx Alcohol Use: No Hx Substance Use: No Review of Systems All systems reviewed & are unremarkable except as noted in HPI & below Physical Exam Constitutional: WD/WN, vitals as above Respiratory: normal respiratory effort, lungs clear to auscultation Cardiovascular: RRR, no murmur, no edema Gastrointestinal (Abdomen): normal bowel sounds, soft, nontender, no hepatosplenomegaly Musculoskeletal: no calgf tenderness Genitourinary: OB Exam Abdomen: + regular contractions (every 3-4 minutes) Manual OB Exam: + cervical dilation 6 cm, + cervical effacement 90% and + station 0 OB Exam Monitor Tracing: + external FHT monitor used, + external uterine monitor used, + category I and + normal FHT variability Results & Data Vital Signs (Past 12 Hours) Vital Signs Temp Pulse Resp BP Pulse Ox 03/09/19 15:53 71 100 03/09/19 14:21 36.8 C 20 03/09/19 14:17 80 115/79
[2019-03-09] MEDS ORDERED: HYDROCORTISONE ACETATE 25 MG SUPP PR PRN (19:33)
[2019-03-09] MEDS ORDERED: BISACODYL 10 MG SUPP PR PRN (19:33)
[2019-03-09] MEDS ORDERED: ACETAMINOPHEN 325 MG TAB PO PRN (19:33)
[2019-03-09] MEDS ORDERED: BENZOCAINE 20% AER SPR 82.5 GM CAN EXT PRN (19:33)
[2019-03-09] MEDS ORDERED: SUPERCREAM 0.870% 15 GM JAR EXT PRN (19:33)
[2019-03-09] MEDS ORDERED: OXYCODONE/ACETAMINOPHEN 5mg/325mg TAB PO PRN (19:33)
[2019-03-09] MEDS ORDERED: DIPHTHERIA/TETANUS/PERTUSSIS 0.5 ML SYR/VIAL IM ONE (19:33)
[2019-03-09] MEDS ORDERED: METHYLERGONOVINE MALEATE 0.2 MG/ML AMP IM STA (21:29)
--- NOTE | 2019-03-09 22:46 | Anesthesia Procedure Note ---
Date of Service March 09, 2019 Anesthesia Post Epidural Note Vital Signs Vital Signs: Temp Pulse Resp BP Pulse Ox 37.1 C 65 20 101/59 L 100 03/09/19 22:03 03/09/19 22:02 03/09/19 22:03 03/09/19 22:02 03/09/19 19:23 Pain Intensity Abdomen: Pain Intensity: 1 Notes Mental Status: alert / awake / arousable and participated in evaluation Nausea / Vomiting: adequately controlled Pain: adequately controlled Airway Patency, RR, SpO2: stable & adequate BP & HR: stable & adequate Hydration State: stable & adequate Neuraxial Anesthesia: was administered and sensory block is resolving Anesthetic Complications: no major complications apparent and Pt Satisfied with anesthetic care Epidural: Removed without complications and With tip intact
--- NOTE | 2019-03-10 01:28 | Delivery Summary ---
DATE OF OPERATION: 03/09/2019 The patient is a 23-year-old 2, para 1-0-0-1 white female, EDC of 03/11/2019, who presented in active labor. She was 5 cm on exam in the office on arrival in labor and delivery, she was 6-7 cm dilated. She received effective epidural analgesia. Membranes were ruptured for a small amount of clear fluid. She then progressed to full dilation and pushed effectively over intact perineum for delivery of a viable male infant. Mouth and nasopharynx were suctioned on the mother's abdomen. There was vigorous crying and the infant was moving all 4 limbs. The cord was then clamped and cut. Placenta was expressed intact with 3-vessel cord. First-degree perineal laceration was repaired in the usual fashion with 3-0 chromic. Estimated blood loss was 200 mL. Mother and infant were doing well after delivery. I attest to the content of the Intraoperative Record and any orders documented therein. Any exception s are noted below.
[2019-03-10] MEDS: IBUPROFEN 600 MG TAB PO PRN ×5 (03:40→21:15)
[2019-03-10 06:58] LABS: Hematocrit (blood only) 33.2 % (37-47); Hemoglobin 11.7 g/dL (12.0-16.0); Mean Corpuscular Hgb Conc 35.2 g/dL (32-36); Mean Corpuscular Volume 79.4 fL (80-100); Mean Platelet Volume 9.4 fL (7.4-10.4); Platelet Count 152 K/uL (130-400); RDW Coefficient of Variation 13.1 % (11.5-14.5); RDW Standard Deviation 37.8 fL (36.4-46.3); Red Blood Count 4.18 M/uL (4.2-5.4); White Blood Count 7.27 K/uL (4.8-10.8)
--- NOTE | 2019-03-10 08:26 | Obstetrical Progress Note ---
Date of Service March 10, 2019 Assessment & Plan (1) Encounter for care and examination after delivery: stable course continue current care plan Present on Admission?: No Day #:: 1 Subjective Ambulation: ambulating normally Voiding: no voiding problems Passing Gas:: Yes Diet Tolerance:: regular diet Lochia:: Moderate Feeding Type:: breast feeding some cramping with nursing. Review of Systems All systems reviewed & are unremarkable except as noted in HPI & below Physical Exam Constitutional WD/WN, vitals as above Gastrointestinal (Abdomen) normal bowel sounds, soft, nontender, no hepatosplenomegaly Genitourinary OB Exam Abdomen: + fundal height Fundus: + firm and + relation to umbilicus (at U) Results & Data Vital Signs (Past 12 Hours) Vital Signs Temp Pulse Pulse Resp BP BP Pulse Ox 03/10/19 03:40 36.5 C 66 14 100/59 L 98 03/09/19 23:00 36.6 C 57 L 16 108/74 98 03/09/19 22:03 37.1 C 20 03/09/19 22:02 65 101/59 L 03/09/19 21:20 81 112/74 03/09/19 20:53 76 103/56 L 03/09/19 20:45 67 107/54 L
[2019-03-10] MEDS: PRENATAL VITAMIN 1 TAB PO SCH (08:44)
[2019-03-10] MEDS: DOCUSATE SODIUM 100 MG CAP PO SCH ×2 (08:44→21:13)
[2019-03-10] MEDS ORDERED: BISACODYL 5 MG TABEC PO SCH (20:00)
[2019-03-11] MEDS: IBUPROFEN 600 MG TAB PO PRN ×2 (01:39→09:09)
[2019-03-11 06:46] LABS: Hematocrit (blood only) 31.6 % (37-47); Hemoglobin 10.8 g/dL (12.0-16.0)
--- NOTE | 2019-03-11 09:07 | Obstetrical Progress Note ---
Date of Service March 11, 2019 Assessment & Plan (1) Encounter for care and examination after delivery: Patient PP day 2. Doing well Stable for discharge. Precautions discussed Subjective Ambulation: ambulating normally Voiding: no voiding problems Passing Gas:: Yes Diet Tolerance:: regular diet Lochia:: Moderate Current Pain Level(1-10): 3 Physical Exam Gastrointestinal (Abdomen) Inspection/Auscultation: abdomen not distended Percussion/Palpation: abdomen soft; abdomen nontender Genitourinary OB Exam Abdomen: + fundal height Fundus: + firm and + relation to umbilicus (Below) Results & Data Vital Signs (Past 12 Hours) Vital Signs Temp Pulse Resp BP Pulse Ox 03/10/19 23:30 36.5 C 59 L 18 109/67 99
[2019-03-11] MEDS: DOCUSATE SODIUM 100 MG CAP PO SCH (09:09)
[2019-03-11] MEDS: PRENATAL VITAMIN 1 TAB PO SCH (09:09)
== END 2019-03-11 12:45 | disposition home or self-care (01) | DRG 807 ==
LOC: OPB 14:08 → 4S1 14:11 → 4S2 22:35

== ENCOUNTER 2022-11-26 01:39 | Inpatient (IN) ==
[2022-11-26] MEDS ORDERED: OXYTOCIN 30 UNITS/500 ML BAG IV PRN ×3 (07:47→16:00)
[2022-11-26] MEDS ORDERED: LIDOCAINE 1% LOCAL 20 ML VIAL INFIL PRN (07:47)
--- NOTE | 2022-11-26 08:30 | History & Physical Report ---
Date of Service November 26, 2022 Assessment & Plan (1) Encounter for induction of labor: Plan admit, iv, start pitocin, arom completed. epidural when pt desires. fhts categ 1. Admission and Anticipated Discharge Date Admission Date: November 26, 2022 History of Present Illness Chief Complaint: planned induction Primary Care Provider: ONDINA PCP 26yo at 39+wks [place] presents to L&D for planned elective induction of labor. No rom, no vb. +FM. No regular ctx. PNC uncomplicated, history of pericardial effusion, saw mfm-->resolved. PNL rh pos, ri, gbs neg OBH: x 3 GYNH: nl paps no stds Allergies Allergy/AdvReac Type Severity Reaction Status Date / Time Bactrim Allergy Mild HIVES Verified 02/14/17 08:52 nickel Allergy Unknown SKIN BUMPS Verified 11/26/22 08:20 AND ITCHINESS Penicillins Allergy Unknown HIVES Verified 11/26/22 08:20 Sulfa (Sulfonamide Allergy Unknown Hives Verified 11/26/22 08:20 Antibiotics) sulfamethoxazole Allergy Unknown HIVES Verified 11/25/22 13:38 trimethoprim Allergy Unknown HIVES Verified 11/25/22 13:38 Septra TABS Allergy Unknown Hives Uncoded 11/25/22 13:38 Home Medications Medication Instructions Recorded Confirmed Type prenat.vits,mariel,[id number] 1 tab PO DAILY 04/05/19 11/26/22 History Patient History Medical History (Updated 11/26/22 @ 08:29 by Lenore Mejia MD, FACOG) Anxiety and depression HX , NO MEDS CURRENTLY History of chicken pox History of depression Ovarian cyst X2 UTI (urinary tract infection) Surgical History No history of previous surgery S/P dilatation and curettage endometrial polyp Family History (Updated 04/26/22 @ 14:13 by Vivian Aguero) Sister Depression Father Dyslipidemia Hypertension Family history of diabetes mellitus Mother Hypertension Grandfather (Maternal) Leukemia Denies family history of Ovarian cancer Breast cancer Colorectal cancer Social History (Updated 04/26/22 @ 14:14 by Vivian Aguero) Smoking Status: Never smoker Hx Alcohol Use: No Hx Substance Use: No Preferred Language: Omani Communication Ability: Effective Rail Car 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/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 Required: No Beliefs That Will Affect Care: None marital status: marital status details: Robert Chapin (31) [phone] Current Living Situation: Spouse and Family Current Living Situation Comment: and 2 kids current occupational status: employed 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 Other Information That Helps Us Care for You: No Feels Safe at Home: Yes Safety Concerns: Feels Safe At This Time Assistive Devices: Contacts and Glasses Review of Systems as per Subjective / HPI Physical Exam Constitutional: WD/WN, vitals as above Respiratory: normal respiratory effort, lungs clear to auscultation Cardiovascular: Rate/Rhythm: regular rate and regular rhythm Gastrointestinal (Abdomen): soft gravid nt efw 7-8# Musculoskeletal: no edema nontender calves Neurologic: grossly normal Psychiatric: A+Ox3, euthymic affect Genitourinary: Manual OB Exam: + cervical dilation 2 cm, + cervical effacement 50%, + station -2 and + amniotic fluid (AROM) clear OB Exam Monitor Tracing: + external FHT monitor used, + external uterine monitor used (no regular ctx), + category I and + normal FHT variability Results & Data Vital Signs (Past 12 Hours) Vital Signs Temp Pulse Resp BP 11/26/22 07:59 98.2 F 20 11/26/22 07:54 108 H 120/71 Coding Level of Care Code None Diagnoses Encounter for induction of labor Z34.90
[2022-11-26 08:31] LABS: Hematocrit (blood only) 30.5 % (37.0-47.0); Hemoglobin 10.2 g/dl (12.0-16.0); Mean Corpuscular Hgb Conc 33.4 g/dL (32.0-36.0); Mean Corpuscular Volume 77.6 fL (80.0-100.0); Platelet Count 210 K/uL (130-400); RDW Coefficient of Variation 12.7 % (11.5-14.5); RDW Standard Deviation 35.8 fL (36.4-46.3); Red Blood Count 3.93 M/uL (4.20-5.40); White Blood Count 6.42 K/ul (4.8-10.8)
--- NOTE | 2022-11-26 09:07 | Anesthesiology Consultation ---
Date of Service November 26, 2022 Assessment & Plan (1) Encounter for pre-operative examination: Chart Review Chart Review: Patient NOT seen in Pre Admission Testing and Acceptable Risk for Labor Epidural Consults Requested none History Height/Weight Height: 5 ft 4 in Weight: 76.839 kg Allergies Allergy/AdvReac Type Severity Reaction Status Date / Time Bactrim Allergy Mild HIVES Verified 02/14/17 08:52 nickel Allergy Unknown SKIN BUMPS Verified 11/26/22 08:20 AND ITCHINESS Penicillins Allergy Unknown HIVES Verified 11/26/22 08:20 Sulfa (Sulfonamide Allergy Unknown Hives Verified 11/26/22 08:20 Antibiotics) sulfamethoxazole Allergy Unknown HIVES Verified 11/25/22 13:38 trimethoprim Allergy Unknown HIVES Verified 11/25/22 13:38 Septra TABS Allergy Unknown Hives Uncoded 11/25/22 13:38 Medications Home Medications Medication Instructions Recorded Confirmed Last Taken prenat.vits,mariel,[id number] 1 tab PO DAILY 04/05/19 11/26/22 11/25/22 12:00 Active Medications Generic Name Dose Route Start Last Admin Trade Name Freq PRN Reason Stop Dose Admin Lactated Ringer's 1,000 mls @ 125 mls/hr 11/26/22 07:47 11/26/22 09:24 Lr IV 11/28/22 07:46 125 mls/hr .Q8H PRN Administration L&D Protocol Protocol Oxytocin 30 units in 500 mls @ 7 mls/hr 11/26/22 07:53 11/26/22 11:25 Pitocin IV 11/28/22 07:52 0.42 units/hr .Q24H PRN 7 mls/hr Labor Induction/Augmentation Titration Protocol 0.42 UNITS/HR Past Medical History Medical History Anxiety and depression HX , NO MEDS CURRENTLY History of chicken pox History of depression Ovarian cyst X2 UTI (urinary tract infection) Past Family History Family History Sister Depression Father Dyslipidemia Hypertension Family history of diabetes mellitus Mother Hypertension Grandfather (Maternal) Leukemia Denies family history of Ovarian cancer Breast cancer Colorectal cancer Past Surgical History Surgical History No history of previous surgery S/P dilatation and curettage endometrial polyp Social History Smoking Status: Never smoker Hx Alcohol Use: No Alcohol type: wine alcohol intake frequency: a few times a week Hx Substance Use: No substance use type: does not use Physical Exam Vital Signs Last Vital Signs Temp 36.6 C 11/26/22 11:23 Pulse 106 H 11/26/22 12:59 Resp 18 11/26/22 11:23 BP 107/71 11/26/22 12:59 Pulse Ox 97 11/26/22 12:59 Testing Laboratory Results 11/26/22 08:10
[2022-11-26] MEDS: LACTATED RINGER'S 1,000 ML IV PRN ×2 (09:24→13:01)
[2022-11-26] MEDS ORDERED: ePHEDrine sulfate 50 MG/ML AMP ONE (12:00)
[2022-11-26] MEDS ORDERED: SODIUM CHLORIDE 0.9% PF INJ 10 ML VIAL ONE (12:01)
[2022-11-26] MEDS ORDERED: fentaNYL citrate PF 100 MCG/2 ML VIAL ONE (12:01)
[2022-11-26] MEDS ORDERED: LIDOCAINE 2%/EPINEPHRINE 1:200,000 20 ML PF ONE (12:01)
[2022-11-26] MEDS ORDERED: BUPIVACAINE 0.25% PF 30 ML VIAL ONE (12:01)
[2022-11-26] MEDS ORDERED: fentaNYL 2MCG/ML ROPIVACAINE 1.25MG/ML 100 ML BAG EPI ONE (12:02)
[2022-11-26] MEDS ORDERED: NALOXONE HCL 1 MG in SODIUM CHLORIDE 0.9% 1000ML 1,000 ML IV PRN (12:38)
[2022-11-26] MEDS ORDERED: ePHEDrine sulfate 50 MG/ML AMP IV PRN (12:38)
[2022-11-26] MEDS ORDERED: NALOXONE HCL 0.4 MG/1 ML VIAL/CARP IV PRN (12:38)
[2022-11-26] MEDS ORDERED: NALBUPHINE HCL INJ 10 MG/ML AMP IV PRN (12:38)
[2022-11-26] MEDS ORDERED: ONDANSETRON INJ 2 MG/ML 2 ML VIAL IV PRN (12:38)
[2022-11-26] MEDS ORDERED: diphenhydrAMINE 50 MG/ML VIAL IV PRN (12:38)
[2022-11-26] MEDS ORDERED: fentaNYL 2MCG/ML ROPIVACAINE 1.25MG/ML 100 ML BAG EPI PRN (12:38)
--- NOTE | 2022-11-26 13:02 | Labor Progress Brief Note ---
Date of Service November 26, 2022 Subjective desires cx check. having more painful ctx. Assessment & Plan (1) Encounter for induction of labor: Plan some cx change. c/w pit. epidural when she desires. fhts categ. Admission and Anticipated Discharge Date Admission Date: November 26, 2022 Physical Exam Constitutional: WD/WN, vitals as above Genitourinary: Manual OB Exam: + cervical dilation 3 cm, + cervical effacement 60% and + station -2 OB Exam Monitor Tracing: + external FHT monitor used, + external uterine monitor used (q2-3 pit infusing), + category I and + normal FHT variability Results & Data Vital Signs (Past 12 Hours) Vital Signs Temp Pulse Resp BP Pulse Ox 11/26/22 07:59 98.2 F 20 11/26/22 12:59 97 11/26/22 12:59 106 H 11/26/22 12:59 107/71 11/26/22 12:56 85 11/26/22 12:56 106/73 11/26/22 12:54 97 11/26/22 12:54 83 11/26/22 12:49 99 11/26/22 12:49 88 11/26/22 12:47 93 11/26/22 12:47 85 11/26/22 12:48 84 11/26/22 12:48 106/61 11/26/22 12:44 97 11/26/22 12:44 83 11/26/22 11:23 18 11/26/22 11:23 97.9 F 18 11/26/22 11:23 90 11/26/22 11:23 119/57 L 11/26/22 10:33 84 11/26/22 10:33 102/58 L 11/26/22 09:26 106 H 11/26/22 09:26 118/81 11/26/22 07:54 108 H 120/71 Coding Level of Care Code None Diagnoses Encounter for induction of labor Z34.90
[2022-11-26] MEDS ORDERED: DIPHTHERIA/TETANUS/PERTUSSIS 0.5mL SYR/VIAL (Age 7+yrs) IM ONE (16:00)
[2022-11-26] MEDS ORDERED: HYDROCORTISONE ACETATE 25 MG SUPP PR PRN (16:00)
[2022-11-26] MEDS ORDERED: oxyCODONE/ACETAMINOPHEN 5mg/325mg TAB PO PRN (16:00)
[2022-11-26] MEDS ORDERED: BENZOCAINE 20% AER SPR 82.5 GM CAN EXT PRN (16:00)
--- NOTE | 2022-11-26 16:00 | Delivery Summary ---
Vaginal Delivery Summary Date of Service November 26, 2022 Vaginal Delivery Summary and 2nd Degree LAC The patient dilated to complete and pushed to deliver a viable female infant Apgars 8 and 9 via over 2nd degree perineal laceration. Mouth and nose bulb suctioned at perineum. Loose nuchal x 1 reduced. Shoulders and body delivered with ease. Infant was vigorous and crying at . Cord clamped at 30 seconds of life and infant to maternal abdomen where the cord was then doubly clamped and cut. Placenta delivered spontaneously and intact, three-vessel cord. Hemostasis achieved with dilute pitocin and uterine massage and drainage of the bladder for approximately 300 cc under sterile conditions. Cervix and sulci intact. Laceration repaired in usual fashion with 3-0 vicryl. EBL 300 cc. Mother and baby stable in recovery. [facility] [place]aginal Delivery Charge Delivery Type Details: and 2nd Degree LAC
--- NOTE | 2022-11-26 16:26 | Anesthesia Procedure Note ---
Date of Service November 26, 2022 Anesthesia Post Epidural Note Vital Signs Vital Signs: Temp Pulse Resp BP Pulse Ox 36.3 C L 96 H 18 118/61 90 11/26/22 15:27 11/26/22 16:14 11/26/22 15:27 11/26/22 16:14 11/26/22 15:34 Pain Intensity Abdomen: Pain Intensity: 4 Notes Mental Status: alert / awake / arousable and participated in evaluation Patient Amnestic to Procedure: No Nausea / Vomiting: adequately controlled Pain: adequately controlled Airway Patency, RR, SpO2: stable & adequate BP & HR: stable & adequate Hydration State: stable & adequate Neuraxial Anesthesia: was administered and sensory block is resolving Anesthetic Complications: no major complications apparent and Pt Satisfied with anesthetic care Epidural: Removed without complications and With tip intact
[2022-11-26] MEDS: OXYTOCIN 20 UNITS in LACTATED RINGER'S 1,000 ML IV SCH (17:12)
[2022-11-26] MEDS: IBUPROFEN 600 MG TAB PO PRN (19:38)
[2022-11-26] MEDS: DOCUSATE SODIUM 100 MG CAP PO SCH (20:24)
[2022-11-27] MEDS: IBUPROFEN 600 MG TAB PO PRN ×5 (04:05→21:27)
--- NOTE | 2022-11-27 06:07 | Obstetrical Progress Note ---
Date of Service November 27, 2022 Assessment & Plan (1) Status post vaginal delivery: Feels well today. Eating well, voiding well, ambulating well. - Routine care -- OOB, ambulation, diet progression as tolerated - After discharge will have 6 week Subjective Monika is a 26 y/o female who is now PPD # 1 following spontaneous vaginal delivery at 39 1/7 weeks. Reports feeling well overall this morning. _ abdominal cramping & _/10 pain well managed on analgesics. Voiding _. Tolerating meals overnight and able to ambulate some. _ passing gas and _ bowel movements. Some persistent lochia with some improvement this morning. Breast/Bottle feeding. Review of Systems Denies fever, chills, sweats Denies shortness of breath, difficulty breathing, chest pain, palpitations, chest pressure. Denies breast pain. Denies dysuria. Denies headache or changes in vision. Physical Exam General: Alert, oriented. No acute distress. Cardiac: Regular rate and rhythm, no murmurs/rubs/gallops. Respiratory: Clear to auscultation bilaterally a/p, no wheezes/rales/rhonchi. No increased work of breathing. Symmetrical chest rise. No respiratory distress. Abdomen: Soft, nontender, nondistended. Bowel sounds present. Uterus: Uterine fundus firm, palpable _ cm below umbilicus. Lower Extremities: No lower extremity edema or swelling. No deep calf pain. Lucy's negative bilaterally. Results & Data Vital Signs (Past 12 Hours) Vital Signs Temp Pulse Pulse Resp BP BP O2 Del Method 11/27/22 03:57 36.5 C 63 16 106/67 Room Air 11/26/22 23:13 36.6 C 66 16 99/63 L Room Air 11/26/22 19:30 36.9 C 90 16 104/70 Room Air 11/26/22 18:14 90 11/26/22 18:14 104/65 Resident Activity Tracking Resident Involvement: Resident Care Provided Care Provided: OB Delivery
--- NOTE | 2022-11-27 06:49 | Obstetrical Progress Note ---
Date of Service November 27, 2022 Assessment & Plan (1) Status post vaginal delivery: Plan stable, routine care. breast/rhpos/ri. instructions reviewed in case plans dc later today. Day #:: 1 Subjective Ambulation: ambulating normally Voiding: no voiding problems Diet Tolerance:: regular diet Lochia:: Small Feeding Type:: breast feeding having more cramps, meds help. notes baby ryne + so not sure will want to go home late today so ok to stay until tomorrow. denies other complaints. Physical Exam Constitutional WD/WN, vitals as above Respiratory normal respiratory effort, lungs clear to auscultation Cardiovascular Rate/Rhythm: regular rate and regular rhythm Gastrointestinal (Abdomen) Inspection/Auscultation: abdomen normal to inspection Percussion/Palpation: abdomen soft Fundus firm 2cm down Musculoskeletal nt calves no edema Neurologic grossly normal Psychiatric A+Ox3, euthymic affect Results & Data Vital Signs (Past 12 Hours) Vital Signs Temp Pulse Resp BP O2 Del Method 11/27/22 03:57 97.7 F 63 16 106/67 Room Air 11/26/22 23:13 97.9 F 66 16 99/63 L Room Air 11/26/22 19:30 98.4 F 90 16 104/70 Room Air
[2022-11-27] MEDS: DOCUSATE SODIUM 100 MG CAP PO SCH ×2 (07:49→20:19)
[2022-11-27] MEDS: PRENATAL VITAMIN 1 TAB PO SCH (07:49)
[2022-11-27] MEDS: OXYTOCIN 20 UNITS in LACTATED RINGER'S 1,000 ML IV SCH ×2 (09:17→16:52)
[2022-11-27] MEDS: ACETAMINOPHEN 325 MG TAB PO PRN (21:26)
[2022-11-28] MEDS: PRENATAL VITAMIN 1 TAB PO SCH (07:57)
[2022-11-28] MEDS: DOCUSATE SODIUM 100 MG CAP PO SCH (07:57)
[2022-11-28] MEDS: IBUPROFEN 600 MG TAB PO PRN ×2 (07:57→11:49)
[2022-11-28] MEDS: ACETAMINOPHEN 325 MG TAB PO PRN (07:58)
--- NOTE | 2022-11-28 08:46 | Obstetrical Progress Note ---
Date of Service November 28, 2022 Assessment & Plan (1) Status post vaginal delivery: day 2 status post vaginal delivery. Doing well without concerns. Stable for discharge. Subjective Ambulation: ambulating normally Voiding: no voiding problems Passing Gas:: Yes Diet Tolerance:: regular diet Lochia:: Moderate Feeding Type:: breast feeding Physical Exam Constitutional WD/WN, vitals as above Respiratory normal respiratory effort; no respiratory distress and no labored breathing Cardiovascular No calf tenderness Gastrointestinal (Abdomen) Inspection/Auscultation: abdomen normal to inspection; abdomen not distended Percussion/Palpation: abdomen soft; abdomen nontender, no guarding and abdomen not rigid Genitourinary OB Exam Abdomen: + fundal height Fundus: + firm and + relation to umbilicus (Below); not tender or not boggy Results & Data Vital Signs (Past 12 Hours) Vital Signs Temp Pulse Resp BP O2 Del Method 11/27/22 23:15 36.5 C 71 16 98/63 L Room Air
== END 2022-11-28 12:50 | disposition home or self-care (01) | DRG 807 ==
LOC: 4S1 07:45 → 4E2 19:00